=== PATIENT | female | born 1930 | race Caucasian/White ===

== ENCOUNTER → 2016-07-19 | Outpatient (CLI) | payer MEDICARE, OTHER | END | disposition home or self-care (01) | LOC: GMAB 15:52 | PROVIDERS: ATTEND Family Medicine | DX: N39.0 Urinary tract infection, site not specified (principal) ==

== ENCOUNTER 2018-07-22 06:36 | Inpatient (IN) | payer MEDICARE, OTHER ==
[2018-07-22] MEDS ORDERED: IPRATROPIUM/ALBUTEROL 3 ML VIAL NEB ONE ×3 (06:50→07:57)
[2018-07-22] MEDS ORDERED: cefTRIAXone SODIUM 1 GM in SODIUM CHL 0.9% 50ML MIN-BAG+ 50 ML IVPB ONE (07:08)
[2018-07-22] MEDS ORDERED: SODIUM CHL 0.9% 50ML MIN-BAG+ 50 ML IVPB ONE (07:19)
[2018-07-22] MEDS ORDERED: cefTRIAXone SODIUM 1 GM VIAL ONE (07:19)
[2018-07-22] MEDS ORDERED: AZITHROMYCIN IV 500 MG in SODIUM CHLORIDE 0.9% 250ML 250 ML IVPB ONE (07:57)
[2018-07-22] MEDS ORDERED: methylPREDNISolone SODIUM SUC 125 MG/2 ML VIAL IV ONE (07:57)
[2018-07-22] MEDS ORDERED: AZITHROMYCIN IV 500 MG VIAL IVPB ONE (08:10)
[2018-07-22] MEDS ORDERED: SODIUM CHLORIDE 0.9% 250ML 250 ML ONE (08:11)
--- NOTE | 2018-07-22 08:42 | RAD ---
EXAM DESCRIPTION: Chest,2 Views CLINICAL HISTORY: SOB COMPARISON: December 17, 2015 FINDINGS: Frontal and lateral views of the thorax. No acute consolidation, effusion or pneumothorax is present. Mild left ventricular hypertrophy is present. Vascular pedicle is normal. No cephalization. No increased interstitial lung markings. Degenerative dextro scoliosis of the thoracolumbar spine. IMPRESSION: Negative for acute cardiopulmonary disease. Electronically signed by: Daryl Frances MD 07/22/2018 8:39 AM [employer]
[2018-07-22] MEDS ORDERED: OSELTAMIVIR 75 MG CAP PO ONE (08:46)
--- NOTE | 2018-07-22 08:53 | ED.PDOC ---
History of Present Illness - General Chief Complaint: Respiratory Problem Stated Complaint: short of breath Time Seen by Provider: 07/22/18 07:07 Source: patient Exam Limitations: no limitations - History of Present Illness Initial Comments: the patient is a 88-year-old female presenting to the emergency room primarily due to shortness of breath progressive essentially overnight. The patient was found to be 79% on room air. No definite known history of any COPD and no oxygen dependence in the past. Symptoms started yesterday with a runny nose and a sore throat and a cough. She thinks that she has had a fever but she has had some dccv-lvd-cxhlhtl medications and is technically afebrile here but her temperature was 99.9. She does have wheezes that are audible even without a stethoscope. She does have some diffuse rhonchi. She has corrected nicely with 3 L of nasal cannula oxygen. She does have a history of aortic valvular disease and does see Dr. bronw. No definite history of CHF exacerbations. No history of any COPD again. The patient is pleasant and cooperative but obviously oxygen dependent and in some moderate respiratory distress upon arrival. Timing/Duration: 24 hours Severity: moderate Improving Factors: nothing Worsening Factors: nothing Associated Symptoms: cough, fever/chills, malaise, shortness of breath Allergies/Adverse Reactions: Allergies NO KNOWN ALLERGY Allergy (Verified 02/23/13 17:16) Home Medications: Ambulatory Orders Aspirin [Aspirin EC Lo-Dose] 81 mg PO AM 09/22/13 Atorvastatin Calcium [Lipitor] 10 mg PO AM 09/22/13 Lisinopril 20 mg PO BID 09/22/13 Metoprolol Succinate [Metoprolol Succinate ER] 100 mg PO AM 09/22/13 Review of Systems - Review of Systems Constitutional: States: chills, malaise EENTM: States: nose congestion, throat pain Respiratory: States: cough, short of breath, wheezing Cardiology: States: no symptoms reported Gastrointestinal/Abdominal: States: no symptoms reported Genitourinary: States: no symptoms reported Musculoskeletal: States: no symptoms reported Skin: States: no symptoms reported Neurological: States: no symptoms reported Endocrine: States: no symptoms reported All other Systems: No Change from Baseline Past Medical History (General) - Patient Medical History Hx Stroke: No Hx Cardiac Disorders: Yes Hx Congestive Heart Failure: No Hx Pacemaker: No Hx Hypertension: Yes Hx Diabetes: No Hx Gastroesophageal Reflux: Yes Hx MRSA: No - Vaccination History Hx Influenza Vaccination: No Hx Pneumococcal Vaccination: No - Social History Hx Tobacco Use: Yes - Quit 1988 Hx Alcohol Use: No Hx Substance Use: No Hx Physical Abuse: No Hx Emotional Abuse: No Family Medical History - Family History Father Family History: No Known Living Status: Physical Exam - Physical Exam General Appearance: Alert, Obvious distress, Ill Appearing Eye Exam: bilateral normal Ears, Nose, Throat: hearing grossly normal, nasal congestion, pharyngeal erythema - mild Neck: full range of motion, supple Respiratory: respiratory distress, accessory muscle use, rhonchi, wheezing Cardiovascular/Chest: normal peripheral pulses, no edema, tachycardia Peripheral Pulses: radial,right: 2+, radial,left: 2+, dorsalis pedis,right: 2+, dorsalis pedis,left: 2+ Gastrointestinal/Abdominal: non tender, soft Rectal Exam: deferred Back Exam: no CVA tenderness, no vertebral tenderness Extremity: non-tender, normal inspection, no pedal edema, normal capillary refill 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 She apparently had a fracture of the maxillary sinus as well. Comments: Vital Signs - 8 hr 07/22/18 07/22/18 07/22/18 06:50 06:56 07:03 Temperature 99.9 F H Pulse Rate Pulse Rate [ 89 85 Right] Respiratory 22 20 Rate Blood Pressure 194/95 161/91 [Left Arm] O2 Sat by Pulse 79 L 95 Oximetry 07/22/18 07/22/18 07:10 08:12 Temperature Pulse Rate 91 H 86 Pulse Rate [ Right] Respiratory 22 18 Rate Blood Pressure [Left Arm] O2 Sat by Pulse 91 L 93 L Oximetry Progress - Progress Progress: 07/22/18 08:58 the patient is a 88-year-old female presenting with moderate respiratory distress and significant hypoxia. She has corrected significantly with supplemental oxygen and a couple of breathing treatments. At this point time this appears to be more of a significant acute bronchitis than a focal pneumonia. She did test negative for influenza however this was done subsequent to DuoNeb treatments given by mask which may have interfered with the test. retesting may be prudent, given prevalence in the community. The patient is being covered with Rocephin and azithromycin and Tamiflu. She is of course receiving oxygen, DuoNeb's and has received a dose of IV Solu-Medrol as well. She is much more comfortable at this point. No longer in respiratory distress. She does have a history of aortic valve disease but no definitive history of congestive heart failure according to her. If the patient is failing to improve then consideration could be given towards a trial dose of a diuretic, however this point in time I do not see objective evidence of fluid overload. Blood pressures were initially elevated likely due to patient distress, they have sinc e returned more down towards normal. Last blood pressure was in the 140s over 70s. critical care time spent for respiratory distress is 25 minutes. Blood cultures have been performed. the EKG is abnormal but I have no previous EKGs to compare to. It may be worthwhile to obtain the most recent from Dr. Brown office comparison to make sure that we do not have any new bundle branch block issues. Initial set of cardiac enzymes are negative. The patient is chest pain-free. 07/22/18 09:02 - Results/Orders Results/Orders: chest x-ray shows no overt pneumonia and no overt fluid overload. No obvious mass and no pneumothorax. Laboratory Tests 07/22/18 07/22/18 07/22/18 07:13 07:13 07:13 WBC 9.4 RBC 4.33 Hgb 13.3 Hct 40.0 MCV 92.5 MCH 30.7 MCHC 33.2 RDW 13.2 Plt Count 219 MPV 7.8 Absolute Neuts (auto) 7.80 H Absolute Lymphs (auto) 0.80 L Absolute Monos (auto) 0.50 Absolute Eos (auto) 0.20 Absolute Basos (auto) 0.10 Neutrophils % 82.6 H Lymphocytes % 8.8 L Monocytes % 5.3 Eosinophils % 2.6 Basophils % 0.7 Sodium 141 Potassium 3.5 L Chloride 99 L Carbon Dioxide 29 Anion Gap 16.5 BUN 12 Creatinine 0.77 BUN/Creatinine Ratio 15.6 Random Glucose 134 H Serum Osmolality 283.0 Lactic Acid 1.5 Calcium 9.0 Total Bilirubin 0.7 AST 26 ALT 15 Alkaline Phosphatase 80 Creatine Kinase 72 CK-MB (CK-2) 2.0 CK-MB (CK-2) % Not Reportable Troponin I < 0.02 B-Natriuretic Peptide 209.0 H* Serum Total Protein 7.3 Albumin 3.8 Globulin 3.5 Albumin/Globulin Ratio 1.1 EKG shows normal sinus rhythm at 85 bpm. She does have a right bundle branch block and there is question of a left anterior fascicular block. These changes make ST segment and T-wave abnormalities with apical to interpret. Fairly maría l axis. QT interval is prolonged. Utility of EKG is limited due to interventricular conduction abnormalities.I have no previous EKGs to compare to. Departure - Departure Clinical Impression: Respiratory distress, Acute bronchitis and bronchiolitis Disposition: Admit Patient Condition: Serious Referrals: ALONDRA MORGAN MD [Primary Care Provider] - 1-2 Weeks Home Medications: Ambulatory Orders Aspirin [Aspirin EC Lo-Dose] 81 mg PO AM 09/22/13 Atorvastatin Calcium [Lipitor] 10 mg PO AM 09/22/13 Lisinopril 20 mg PO BID 09/22/13 Metoprolol Succinate [Metoprolol Succinate ER] 100 mg PO AM 09/22/13 Decision To Admit - Decistion To Admit Decision to Admit Reason: Medical Nature Decision to Admit Date: 07/22/18 Decision to Admit Time: 09:02
--- NOTE | 2018-07-22 09:15 | HP ---
SUPERVISING PHYSICIAN: Binu Espana M.D. CHIEF COMPLAINT: Increasing shortness of breath. HISTORY OF PRESENT ILLNESS: Ms. Garza is an 88 year-old female patient that initially presented to the Emergency Room today due to increasing shortness of breath since last night. This morning, the patient was found to be 79% on room air. She noted that she started initially with a runny nose, sore throat and a cough, but not sure if she has had a fever. She has had some muvv-weh-izhzyqa medications that includes Tylenol and on presentation to the Emergency Room temperature was 99.9. In the E. R., she was found to have audible wheezes even without a stethoscope with some diffuse rhonchi. She was placed on nasal cannula improving O2 saturations into the 90s. She has a significant history of aortic valvular disease and is followed by Dr. Brown, but no history of congestive heart failure. Initial vitals in the E. R. showed that again she was satting 79% on room air and after a breathing treatment was up to 91% on 3 liters nasal cannula, and desatted rapidly after removal of supplemental oxygenation. Radiographic studies were negative for any acute cardiopulmonary disease per radiology interpretation. Laboratory studies showed she had normal white count at 9,400 but did have a left shift. Chemistry showed a mildly low potassium at 3.5. Troponin was less than 0.02. BNP was elevated at 209. Lactic acid is 1.5. Blood cultures were completed. Influenza by PCR was showing to be negative for both A and B, however the test was completed just shortly after a nebulizer breathing treatment with the patient being advanced age and requiring continuous supplemental oxygen with concerns for possible upper respiratory infection secondary to Influenza-like illness. Dr. Espana, E. R. physician, requested the patient be admitted for further evaluation and treatment with concerns for developing complications secondary to viral pneumonitis to include possible community-acquired pneumonia. PAST MEDICAL HISTORY: 1. Seasonal allergies. 2. Hypertension. 3. Hyperlipidemia. 4. Diverticulosis. PAST SURGICAL HISTORY: 1. Bladder suspension. 2. Umbilical hernia repair. HOME MEDICATIONS: 1. Lisinopril 40 mg daily. 2. Lipitor 10 mg daily. 3. Aspirin 81 mg daily. 4. Metoprolol succinate extended release 100 mg daily. ALLERGIES: NO KNOWN DRUG ALLERGIES. FAMILY HISTORY: Positive for myasthenia gravis in the mother and maternal grandmother and maternal uncle. Mother also had colon cancer. 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 She is and has 3 children. She does have a history of smoking cigarettes but quit in 1979. She notes that she drinks alcohol on a very infrequent social basis. REVIEW OF SYSTEMS: GENERAL: On admission to the Medical/Surgical floor the patient appears to be in no acute distress. She does look ill in appearance. She is alert, well hydrated, well nourished. HEENT: Tympanic membranes are clear bilaterally. Oropharynx was pink and moist. There was some notable nasal congestion. No drainage. NECK: Supple, non-tender. Full range of motion. No jugular venous distention. CHEST: Lung sounds show diffuse rhonchi and wheezing throughout with decreased breath sounds at bilateral bases. HEART: Regular rate and rhythm with no appreciable murmurs, gallops, or rubs. ABDOMEN: Soft, non-tender. Positive bowel sounds. EXTREMITIES: No clubbing, cyanosis or edema. NEUROLOGIC: She is alert and oriented times three. Cranial nerves II-XII are grossly intact. SKIN: She has [address] overlying the right cheek from a previous fall within the last 10 days but no reported fracture involved in the area in question. Wound edges appear to be healing without any complications. PHYSICAL EXAMINATION: VITAL SIGNS: Temperature 99.8, pulse 100, blood pressure 155/81, respirations 16, again satting 79% on room air, with breathing treatments improving to 91 to 93% on nasal cannula at 3 liters. Admission weight 64.1 kg. Physical findings as noted above. GENERAL: HEENT: NECK: CHEST: CARDIOVASCULAR: ABDOMEN: EXTREMITIES: NEUROLOGIC: RECTAL: LABORATORY: CBC shows white count 9,400 with a left shift. Hemoglobin 13.3, hematocrit 40.0, platelet count 219,000. Chemistry shows mildly low potassium at 3.5, BUN 12, creatinine 0.77, lactic acid 1.5. Liver functions are all within normal limits. Troponin less than 0.02. BNP is 209. Urinalysis was pending. MICROBIOLOGY: Blood cultures are pending. Sputum culture is pending. Influenza A and B by PCR was negative. RADIOLOGY: Two view chest interpretation by radiology was no acute cardiopulmonary disease. ASSESSMENT: 1. Acute bronchitis with bronchiolitis with initially respiratory distress requiring supplemental oxygen and showing to be hypoxic on room air. 2. Influenza-like illness with concerns for viral pneumonitis resulting in acute bronchiolitis noted in #1. 3. Persistent hypoxemia secondary to #1 and #2 requiring aggressive bronchial toiletry and supplemental oxygenation. 4. History of hypertension. 5. History of hyperlipidemia. 6. History of diverticulosis. PLAN: Ms. Garza is going to be admitted with concerns for worsening bronchiolitis secondary to viral infection and concerns for developing community acquired pneumonia. She was started on antivirals with Tamiflu and will be given antibiotics including azithromycin and Rocephin. Will attempt to collect a sputum culture to further target antibiotic therapy. Will follow a chest x- ray and blood cultures. Will anticipate her length of stay to be 2 to 3 days. She will be on DVT prophylaxis as per protocol. Will resume her home medications once those have been updated and verified. She will be on aggressive pulmonary hygiene with q.i.d. DuoNeb treatments and supplemental oxygen as needed. Until she can transition to outpatient management will continue to monitor and treat as needed. #[id number] [facility]
[2018-07-22] MEDS ORDERED: ONDANSETRON INJ 4 MG/2 ML VIAL IV PRN (11:12)
[2018-07-22] MEDS ORDERED: IBUPROFEN 400 MG TAB PO PRN (11:12)
[2018-07-22] MEDS ORDERED: ALBUTEROL SULFATE 2.5 MG/3 ML VIAL NEB PRN (11:12)
[2018-07-22] MEDS ORDERED: ACETAMINOPHEN 325 MG TAB PO PRN (11:12)
[2018-07-22] MEDS ORDERED: METOPROLOL SUCCINATE XL 50 MG TAB ONE (11:29)
[2018-07-22] MEDS ORDERED: LISINOPRIL 10 MG TAB ONE (11:29)
[2018-07-22] MEDS ORDERED: NON-FORMULARY MEDICATION 1 EA MIS (Lisinopril [Lisinopril] 40 MG) PO SCH (11:30)
[2018-07-22] MEDS: IV SET AND CAP CHANGE INJ INJ SCH (11:43)
[2018-07-22] MEDS: IPRATROPIUM/ALBUTEROL 3 ML VIAL INH SCH ×3 (11:45→20:18)
[2018-07-22] MEDS: METOPROLOL SUCCINATE XL 100 MG TAB PO SCH (11:51)
[2018-07-22] MEDS ORDERED: PANTOPRAZOLE SODIUM IV 40 MG VIAL ONE (20:24)
[2018-07-22] MEDS: OSELTAMIVIR 75 MG CAP PO SCH (21:30)
[2018-07-22] MEDS: BENZOCAINE-MENTH LOZ (CEPACOL) 1 EA LOZ MT PRN (21:30)
[2018-07-23] MEDS: PANTOPRAZOLE SODIUM IV 40 MG VIAL IV SCH (06:05)
[2018-07-23] MEDS ORDERED: SODIUM CHLORIDE 0.9% 250ML 250 ML ONE (07:03)
[2018-07-23] MEDS ORDERED: AZITHROMYCIN IV 500 MG VIAL IVPB ONE (07:03)
--- NOTE | 2018-07-23 07:33 | RAD ---
EXAM DESCRIPTION: Chest,2 Views CLINICAL HISTORY: Pneumonia COMPARISON: July 22, 2018. FINDINGS: Frontal and lateral views of the thorax. No consolidation, effusion or pneumothorax is demonstrated. Normal senescent changes. IMPRESSION: Stable chest. Electronically signed by: Daryl Frances MD 07/23/2018 7:30 AM [facility]
[2018-07-23] MEDS: SIMVASTATIN 20 MG TAB PO SCH (08:35)
[2018-07-23] MEDS: OSELTAMIVIR 75 MG CAP PO SCH (08:35)
[2018-07-23] MEDS: METOPROLOL SUCCINATE XL 100 MG TAB PO SCH (08:35)
[2018-07-23] MEDS: LISINOPRIL 10 MG TAB PO SCH (08:35)
[2018-07-23] MEDS: ASPIRIN (ENTERIC COATED) 81 MG TAB PO SCH (08:36)
[2018-07-23] MEDS: AZITHROMYCIN IV 500 MG in SODIUM CHLORIDE 0.9% 250ML 250 ML IVPB SCH (08:36)
[2018-07-23] MEDS: IPRATROPIUM/ALBUTEROL 3 ML VIAL INH SCH (08:49)
[2018-07-23] MEDS: NON-FORMULARY MEDICATION 1 EA MIS (Mirabegron [Myrbetriq] 25 MG) PO SCH (10:08)
[2018-07-23] MEDS ORDERED: SODIUM CHL 0.9% 50ML MIN-BAG+ 50 ML IVPB ONE (10:08)
[2018-07-23] MEDS ORDERED: cefTRIAXone SODIUM 1 GM VIAL ONE (10:09)
[2018-07-23] MEDS: cefTRIAXone SODIUM 1 GM in SODIUM CHL 0.9% 50ML MIN-BAG+ 50 ML IVPB SCH (10:37)
[2018-07-23] MEDS: BENZOCAINE-MENTH LOZ (CEPACOL) 1 EA LOZ MT PRN ×2 (11:27→15:05)
[2018-07-23] MEDS: guaiFENesin ER TAB 600 MG TAB PO SCH ×2 (12:13→20:39)
[2018-07-23] MEDS: LEVALBUTEROL NEBS 1.25 MG/3 ML VIAL NEB SCH ×3 (13:26→20:13)
[2018-07-23] MEDS: BIFIDOBACTERIUM INFANTIS 4 MG CAP PO SCH (15:05)
[2018-07-23] MEDS: SODIUM CHLORIDE 0.9% (FLUSH) 10 ML SYG IV PRN (20:39)
[2018-07-23] MEDS: ENOXAPARIN SODIUM 30 MG/0.3 ML SYG SUBCU SCH (20:39)
[2018-07-23] MEDS: OSELTAMIVIR PHOSPHATE 6 MG/ML BOTTLE PO SCH (20:40)
[2018-07-24] MEDS: PANTOPRAZOLE SODIUM IV 40 MG VIAL IV SCH (06:20)
[2018-07-24] MEDS ORDERED: SODIUM CHLORIDE 0.9% 250ML 250 ML ONE (07:51)
[2018-07-24] MEDS ORDERED: AZITHROMYCIN IV 500 MG VIAL IVPB ONE (07:52)
--- NOTE | 2018-07-24 07:53 | RAD ---
EXAM DESCRIPTION: Chest,2 Views CLINICAL HISTORY: copd exacerbation COMPARISON: July 23, 2018 FINDINGS: The cardiac silhouette is at the upper limits of normal size, stable. Mediastinal contours are otherwise unremarkable. There is no airspace consolidation or pleural effusion. Mild subsegmental atelectasis or scarring is noted in both lung bases, stable. There is no pneumothorax or acute fracture. IMPRESSION: No new abnormality or significant change from yesterday's exam. Electronically signed by: Elvis Lazo MD 07/24/2018 7:50 AM [facility]
--- NOTE | 2018-07-24 08:55 | PN ---
SUPERVISING PHYSICIAN: Binu Espana MD DATE: 07/23/18 SUBJECTIVE: The patient is now having a wet cough and able to produce what she describes as purulent, green looking sputum. She does note she can feel a little more short of breath when she lays down, especially on her right side. She has been afebrile since admission. OBJECTIVE: VITAL SIGNS: Temperature 97.7. Pulse 65. Blood pressure 150/77. Respirations 18. Saturation 94% on room air at rest. Weight 64.0 kg. CHEST: Notable rhonchi heard throughout, more prominent on the right lateral aspect compared to the left with no wheezing. HEART: Regular rate and rhythm. ABDOMEN: Soft, nontender. Positive bowel sounds. EXTREMITIES: No cyanosis, clubbing or edema. NEUROLOGIC: Alert and oriented times three. LABORATORY: White count 8,400, hemoglobin 11.1, hematocrit 33.3, platelet count 189,000. Differential shows a left shift. Chemistries show potassium 3.3, BUN 15, creatinine 0.71, calcium 8.4. MICROBIOLOGY: Blood cultures remain negative. Influenza by PCR for A and B was negative. RADIOLOGY: Repeat chest x-ray this morning per radiologic interpretation shows stable chest. ASSESSMENT: 1. Acute bronchitis/bronchiolitis being hypoxic on room air, requiring supplemental oxygen. 2. Influenza-like illness with probable viral pneumonitis, complicating #1 with concerns now for developing right lower lobe community acquired pneumonia. 3. Persistent hypoxemia secondary to #1 and #2, with continued requirements for aggressive bronchial toiletry and supplemental oxygenation. 4. History of hypertension. 5. History of hyperlipidemia. 6. History of diverticulosis. PLAN: We will continue to go with aggressive pulmonary hygiene today. We will start her on chest percussive therapy along with guaifenesin. She was able to produce sputum for culture. We will await that result to further target antibiotic therapy with anticipation of probably discharging or Sunday. She will need to be ambulated to help ensure she does not require oxygen on discharge. She does remain on DVT prophylaxis. I have resumed her home medications. Until she can transition to outpatient management, we will continue to monitor and treat as needed. #[id number] [facility]
[2018-07-24] MEDS: LEVALBUTEROL NEBS 1.25 MG/3 ML VIAL NEB SCH ×4 (09:19→20:20)
[2018-07-24] MEDS: SODIUM CHLORIDE 0.9% (FLUSH) 10 ML SYG IV PRN ×3 (09:30→20:30)
[2018-07-24] MEDS: AZITHROMYCIN IV 500 MG in SODIUM CHLORIDE 0.9% 250ML 250 ML IVPB SCH (09:30)
[2018-07-24] MEDS: SIMVASTATIN 20 MG TAB PO SCH (09:31)
[2018-07-24] MEDS: ASPIRIN (ENTERIC COATED) 81 MG TAB PO SCH (09:31)
[2018-07-24] MEDS: BIFIDOBACTERIUM INFANTIS 4 MG CAP PO SCH (09:31)
[2018-07-24] MEDS: METOPROLOL SUCCINATE XL 100 MG TAB PO SCH (09:31)
[2018-07-24] MEDS: LISINOPRIL 10 MG TAB PO SCH (09:31)
[2018-07-24] MEDS: guaiFENesin ER TAB 600 MG TAB PO SCH ×2 (09:31→20:30)
[2018-07-24] MEDS: OSELTAMIVIR PHOSPHATE 6 MG/ML BOTTLE PO SCH ×2 (09:32→20:30)
[2018-07-24] MEDS: NON-FORMULARY MEDICATION 1 EA MIS (Mirabegron [Myrbetriq] 25 MG) PO SCH (09:35)
[2018-07-24] MEDS ORDERED: SODIUM CHL 0.9% 50ML MIN-BAG+ 50 ML IVPB ONE (11:19)
[2018-07-24] MEDS ORDERED: cefTRIAXone SODIUM 1 GM VIAL ONE (11:19)
[2018-07-24] MEDS: cefTRIAXone SODIUM 1 GM in SODIUM CHL 0.9% 50ML MIN-BAG+ 50 ML IVPB SCH (11:49)
[2018-07-24] MEDS ORDERED: predniSONE 20 MG TAB PO ONE (13:11)
[2018-07-24] MEDS: BUDESONIDE NEBS 0.5 MG/2 ML VIAL NEB SCH ×2 (13:49→20:20)
--- NOTE | 2018-07-24 17:44 | PN ---
DATE: 07/24/18 SUPERVISING PHYSICIAN: Binu Espana M.D. SUBJECTIVE: The patient is still requiring some O2 when ambulating. She has not yet produced a great amount of sputum but feels like it is improving with the therapy. She has remained afebrile. OBJECTIVE: VITAL SIGNS: Temperature 98.3, pulse 87, blood pressure 146/81, respirations 18, satting 92% on room air at rest. Weight is 65.6 kg. GENERAL: The patient is resting comfortably. Appears to be in no acute distress. She is alert. CHEST: Lung sounds show notable rhonchi heard bilaterally towards both bases with very faint inspiratory and expiratory wheezing. HEART: Regular rate and rhythm. ABDOMEN: Soft, non-tender. Positive bowel sounds. EXTREMITIES: No edema. NEUROLOGIC: She is alert and oriented times three. LABORATORY: Today's chemistries show a persistent low potassium at 3.2, otherwise all other indices were within normal limits. BUN 12, creatinine 0.65, calcium 8.5. MICROBIOLOGY: Blood cultures remain negative at 48 hours. ASSESSMENT: 1. Acute bronchitis/bronchiolitis being hypoxic on room air, requiring supplemental oxygen. 2. Influenza-like illness with probable viral pneumonitis, complicating #1 with concerns now for developing right lower lobe community acquired pneumonia. 3. Persistent hypoxemia secondary to #1 and #2, with continued requirements for aggressive bronchial toiletry and supplemental oxygenation. 4. History of hypertension. 5. History of hyperlipidemia. 6. History of diverticulosis. PLAN: Given that she is having some wheezing today, we are going to go ahead and add some oral prednisone and Pulmicort breathing treatments. Will continue to utilize Guaifenesin and aggressive pulmonary hygiene to help clear the patient's lungs as possible. Will await culture results to help target antibiotic therapy. Once able to transition to outpatient management she will need continued followup and continue antibiotic therapy. I have again encouraged her to ambulate. She has been taken out of droplet isolation as there are no signs or symptoms of any kind of Influenza-type illness. Until she transitions to outpatient management will continue to monitor and treat as needed. #[id number] [facility]
[2018-07-24] MEDS: ENOXAPARIN SODIUM 30 MG/0.3 ML SYG SUBCU SCH (20:30)
[2018-07-25] MEDS: PANTOPRAZOLE SODIUM IV 40 MG VIAL IV SCH (06:06)
[2018-07-25] MEDS ORDERED: SODIUM CHLORIDE 0.9% 250ML 250 ML ONE (07:32)
[2018-07-25] MEDS ORDERED: AZITHROMYCIN IV 500 MG VIAL IVPB ONE (07:33)
[2018-07-25] MEDS: BUDESONIDE NEBS 0.5 MG/2 ML VIAL NEB SCH (08:29)
[2018-07-25] MEDS: LEVALBUTEROL NEBS 1.25 MG/3 ML VIAL NEB SCH ×2 (08:29→11:30)
[2018-07-25] MEDS: BIFIDOBACTERIUM INFANTIS 4 MG CAP PO SCH (08:43)
[2018-07-25] MEDS: METOPROLOL SUCCINATE XL 100 MG TAB PO SCH (08:43)
[2018-07-25] MEDS: guaiFENesin ER TAB 600 MG TAB PO SCH (08:43)
[2018-07-25] MEDS: ASPIRIN (ENTERIC COATED) 81 MG TAB PO SCH (08:43)
[2018-07-25] MEDS: LISINOPRIL 10 MG TAB PO SCH (08:43)
[2018-07-25] MEDS: SIMVASTATIN 20 MG TAB PO SCH (08:43)
[2018-07-25] MEDS: SODIUM CHLORIDE 0.9% (FLUSH) 10 ML SYG IV PRN (08:44)
[2018-07-25] MEDS: OSELTAMIVIR PHOSPHATE 6 MG/ML BOTTLE PO SCH (08:44)
[2018-07-25] MEDS: AZITHROMYCIN IV 500 MG in SODIUM CHLORIDE 0.9% 250ML 250 ML IVPB SCH (08:45)
[2018-07-25] MEDS: NON-FORMULARY MEDICATION 1 EA MIS (Mirabegron [Myrbetriq] 25 MG) PO SCH (08:46)
[2018-07-25 09:55] VITALS: BP 151/75; TEMP 97.7; O2SAT 96
[2018-07-25] MEDS ORDERED: SODIUM CHL 0.9% 50ML MIN-BAG+ 50 ML IVPB ONE (11:31)
[2018-07-25] MEDS ORDERED: cefTRIAXone SODIUM 1 GM VIAL ONE (11:32)
[2018-07-25] MEDS: cefTRIAXone SODIUM 1 GM in SODIUM CHL 0.9% 50ML MIN-BAG+ 50 ML IVPB SCH (11:36)
[2018-07-25] MEDS: IV SET AND CAP CHANGE INJ INJ SCH (11:53)
--- NOTE | 2018-08-05 19:04 | DS ---
SUPERVISING PHYSICIAN: Binu Espana M.D. ADMISSION DIAGNOSIS: 1. Acute bronchitis with bronchiolitis with initially respiratory distress requiring supplemental oxygen and showing to be hypoxic on room air. 2. Influenza-like illness with concerns for viral pneumonitis resulting in acute bronchiolitis noted in #1. 3. Persistent hypoxemia secondary to #1 and #2 requiring aggressive bronchial toiletry and supplemental oxygenation. 4. History of hypertension. 5. History of hyperlipidemia. 6. History of diverticulosis. DISCHARGE DIAGNOSIS: 1. Acute bronchitis/bronchiolitis being hypoxic on room air, requiring supplemental oxygen. 2. Influenza-like illness with probable viral pneumonitis, complicating #1 with concerns now for developing right lower lobe community acquired pneumonia. 3. Persistent hypoxemia secondary to #1 and #2, with continued requirements for aggressive bronchial toiletry and supplemental oxygenation. 4. History of hypertension. 5. History of hyperlipidemia. 6. History of diverticulosis. REASON FOR HOSPITALIZATION: Ms. Garza is an 88 year-old female patient that initially presented to the Emergency Room today due to increasing shortness of breath since last night. This morning, the patient was found to be 79% on room air. She noted that she started initially with a runny nose, sore throat and a cough, but not sure if she has had a fever. She has had some [id number] medications that includes Tylenol and on presentation to the Emergency Room temperature was 99.9. In the E. R., she was found to have audible wheezes even without a stethoscope with some diffuse rhonchi. She was placed on nasal cannula improving O2 saturations into the 90s. She has a significant history of aortic valvular disease and is followed by Dr. Brown, but no history of congestive heart failure. Initial vitals in the E. R. showed that again she was satting 79% on room air and after a breathing treatment was up to 91% on 3 liters nasal cannula, and desatted rapidly after removal of supplemental oxygenation. Radiographic studies were negative for any acute cardiopulmonary disease per radiology interpretation. Laboratory studies showed she had normal white count at 9,400 but did have a left shift. Chemistry showed a mildly low potassium at 3.5. Troponin was less than 0.02. BNP was elevated at 209. Lactic acid is 1.5. Blood cultures were completed. Influenza by PCR was showing to be negative for both A and B, however the test was completed just shortly after a nebulizer breathing treatment with the patient being advanced age and requiring continuous supplemental oxygen with concerns for possible upper respiratory infection secondary to Influenza-like illness. Dr. Espana, E. R. physician, requested the patient be admitted for further evaluation and treatment with concerns for developing complications secondary to viral pneumonitis to include possible community-acquired pneumonia. LABORATORY STUDIES: White count on admission was 9.4, at discharge was 8,400. Hemoglobin 11.1, hematocrit 33.3 respectively with platelet count 189,000. Differential showed a persistent left shift. Chemistries showed potassium 3.5 at admission and on discharge was 3.2. All other electrolytes were within normal limits. Troponin was less than 0.02. Liver functions all were within normal limits. BNP was elevated at 209. Lactic acid was 1.5. Urinalysis just showed 15 ketones, otherwise within normal limits. MICROBIOLOGY: Blood cultures remained negative after 5 days. Influenza A and B by PCR showed to be negative for A and B. RADIOLOGY: Chest x-ray initially in the E. R. per radiology interpretation for 2 view chest showed negative for acute cardiopulmonary disease. She also had multiple chest x-rays, the last being on 07/24/18 and per radiology interpretation showed the cardiac silhouette at the upper limits of normal with no airspace consolidations or pleural effusions. No pneumothoraxes or acute fractures. Please see that report for full details. EKG at time of admission showed normal sinus rhythm with no acute ST changes. HOSPITAL COURSE: Ms. Garza was admitted on 07/22/18 for treatment of acute bronchitis, bronchiolitis with persistent hypoxemia. She was started on oxygen and aggressive pulmonary hygiene. Medications included Rocephin. She was started on IV steroids and tapered to p.o. dose along with the addition of azithromycin. She clinically showed good improvement and response to treatment. She was felt stable enough to continue with outpatient management. PLAN: Ms. Garza was discharged on 07/25/18 with instructions to followup with Dr. Cody in 7 days or sooner if needed. She was to resume her home medications as instructed and given warnings to return to the hospital should she have any worsening of her symptoms. Diet at discharge was regular diet as tolerated. Activity is to increase as tolerated. New prescriptions at discharged included: 1. Promethazine with codeine every 6 hours as needed for cough. 2. Align 4 mg daily. 3. Cefdinir 300 mg twice daily, #14, no refills. 4. Guaifenesin 600 mg twice daily. 5. Xopenex 1.25 mg 4 times a day, #25 with refills. 6. Medrol Dosepak 4 mg as directed. 7. Tamiflu 60 mg twice daily for completion of 5 days. All other medications prior to hospitalization were continued as noted: 1. Myrbetriq 25 mg daily. 2. Lisinopril 40 mg daily. 3. Aspirin 81 mg daily. DISPOSITION: The patient is discharged home. Condition on discharge was stable and improving. [facility][id number] [facility]
== END 2018-07-25 13:20 | disposition home or self-care (01) | DRG 195 ==
LOC: ER 06:36 → MS 09:14
PROVIDERS: ADMIT Nurse Practitioner Family; ATTEND Nurse Practitioner Family
DX: J11.08 Influenza due to unidentified influenza virus with specified pneumonia (principal); I35.9 Nonrheumatic aortic valve disorder, unspecified; I10 Essential (primary) hypertension; K21.9 Gastro-esophageal reflux disease without esophagitis; E78.5 Hyperlipidemia, unspecified; Z79.82 Long term (current) use of aspirin; Z87.891 Personal history of nicotine dependence

== ENCOUNTER → 2019-02-07 | Outpatient (CLI) | payer MEDICARE, OTHER ==
--- NOTE | 2019-02-09 15:10 | US ---
EXAM DESCRIPTION: Soft Tissue,Extremity: ULTRASOUND. CLINICAL HISTORY: 88 years Female LOCALIZED SWELLING MASS AND LUMP RIGHT UPPER LIMB COMPARISON: None Available. TECHNIQUE: Transcutaneous scanning: Ruby-scale and Doppler modes. FINDINGS: Marked ecchymosis on the anterior and anteromedial inferior right upper arm and right elbow. Soft tissue swelling mid anterior right upper arm. Long head biceps tendon and short head biceps are intact. Diffuse edema and disruption noted in the distal right biceps brachia. Patient could not tolerate transducer pressure over the distal muscle in the area of ecchymosis. Hemorrhage and echogenic shadowing noted. IMPRESSION: Probable partial versus complete tear of the distal biceps brachia tendon, though the distal insertion was not visualized due to patient tenderness. Also disruption of the distal muscle fibers with hemorrhage and soft tissue edema. Proximal tendons are intact. Electronically signed by: Yong Forbes MD 02/09/2019 3:09 PM CDT
== END ==
LOC: US 14:34
PROVIDERS: ATTEND Family Medicine
DX: R22.31 Localized swelling, mass and lump, right upper limb (principal); M67.813 Other specified disorders of tendon, right shoulder

== ENCOUNTER → 2019-02-17 | Outpatient (CLI) | payer MEDICARE, OTHER ==
--- NOTE | 2019-02-19 08:35 | MRI ---
Study: MRI of the right upper arm. Indication: LOCALIZED SWELLING,MASS LUMP,RT UPPER LIMB Technique: Multiplanar, multi sequence MRI of the right upper arm was obtained without intravenous contrast. Comparison: Sonogram February 07, 2018 Findings: Acute appearing full-thickness tear of the proximal long head biceps tendon from the bicipital labral anchor noted. The tendon is retracted and balled upon itself. It is located at the mid humeral shaft level, approximately 14 cm inferior to the superior margin of the humeral head. Extensive surrounding edema/inflammation at this site. Associated intramuscular edema present as well. The distal biceps tendon insertion is not included within the [id number], however the distal tendon does appear appropriately positioned at the level of the elbow joint line. Examination not optimized to evaluate the right shoulder or elbow for internal derangement. However, full-thickness, fullwidth supraspinatus tendon tearing noted with high-grade articular tearing anterior infraspinatus tendon. Severe AC joint osteoarthritis. Moderate glenohumeral joint effusion. No acute fracture of the right humerus identified. Impression: Acute-appearing full-thickness tear of the proximal long head biceps tendon from the bicipital labral anchor with significant distal retraction of the tendon which lies at the level of the mid humeral shaft. Partial visualization of full-thickness, fullwidth supraspinatus tendon tear with high-grade articular tearing infraspinatus tendon. Dedicated MRI of the right shoulder could better evaluate. Additional findings as above. Electronically signed by: Oscar Whittington MD 02/19/2019 8:33 AM CDT
== END ==
LOC: MRI 11:00
PROVIDERS: ATTEND Family Medicine
DX: S46.111A Strain of muscle, fascia and tendon of long head of biceps, right arm, initial encounter (principal); M75.101 Unspecified rotator cuff tear or rupture of right shoulder, not specified as traumatic

== ENCOUNTER → 2019-02-25 | Outpatient (CLI) | payer MEDICARE, OTHER ==
--- NOTE | 2019-02-26 07:56 | MRI ---
Study: MRI of the Right Shoulder. Indication: ROTATOR CUFF TEAR Technique: Multiplanar, multi sequence MRI of the right shoulder was obtained without intravenous contrast. Comparison: None. Findings: Severe hypertrophic AC joint osteoarthritis. Type II acromion. At the anterior superior shoulder is a subcutaneous encapsulated 5.5 cm lipoma. Small to moderate volume subacromial/subdeltoid bursal fluid. Superior migration humeral head. Full-thickness, fullwidth supraspinatus tendon tear with high-grade articular tearing anterior two thirds infraspinatus tendon insertion. In its entirety the tearing measures 35 mm AP by up to 35 mm transverse. Torn tendon fibers retracted to the level of the AC joint line. High grade articular, effectively full-thickness tearing superior two thirds subscapularis tendon insertion. Mild atrophy and grade 2 fatty infiltration rotator cuff musculature. Long head biceps tendon torn and distally retracted. Circumferential labral truncation and degeneration. Mild glenohumeral joint osteoarthritis with small joint effusion. No acute fracture. Impression: Full-thickness, fullwidth supraspinatus tendon tear with high-grade articular tearing anterior two thirds infraspinatus tendon insertion. High-grade articular, effectively full-thickness tearing superior two thirds subscapularis tendon insertion. Mild atrophy and grade 2 fatty infiltration rotator cuff musculature. Long head biceps tendon torn and distally retracted. Circumferential labral truncation/degeneration. Mild glenohumeral joint osteoarthritis with small joint effusion. Severe hypertrophic AC joint osteoarthritis. Electronically signed by: Oscar Whittington MD 02/26/2019 7:54 AM CDT
== END ==
LOC: MRI 09:00
PROVIDERS: ATTEND Orthopaedic Surgery
DX: M75.111 Incomplete rotator cuff tear or rupture of right shoulder, not specified as traumatic (principal); S46.111D Strain of muscle, fascia and tendon of long head of biceps, right arm, subsequent encounter; M19.011 Primary osteoarthritis, right shoulder; M62.511 Muscle wasting and atrophy, not elsewhere classified, right shoulder

== ENCOUNTER → 2019-03-18 | Outpatient (CLI) | payer MEDICARE, OTHER | LOC: GMAE 10:45 | PROVIDERS: ATTEND Family Medicine | DX: I10 Essential (primary) hypertension (principal); E78.2 Mixed hyperlipidemia ==

== ENCOUNTER → 2019-06-03 | Outpatient (CLI) | payer MEDICARE, OTHER | LOC: LAB.O 10:29 | PROVIDERS: ATTEND Orthopaedic Surgery | DX: Z01.818 Encounter for other preprocedural examination (principal) ==

== ENCOUNTER → 2019-06-17 | Outpatient (CLI) | payer MEDICARE, OTHER ==
--- NOTE | 2019-06-18 13:19 | MRI ---
Study: MRI of the Left Shoulder. Indication: UNSPECIFIED ROTATOR CUFF TEAR OR RUPTURE OF LEFT SHOULDER Technique: Multiplanar, multi sequence MRI of the left shoulder was obtained without intravenous contrast. Comparison: None. Findings: Moderate to severe hypertrophic AC joint osteoarthritis. Type II acromion. Moderate volume subacromial/subdeltoid bursal fluid communicating with a moderate size joint effusion. Full-thickness, fullwidth supraspinatus and infraspinatus tendon tearing with retraction of torn tendon fibers to the medial third of the humeral head. Full-thickness tearing superior two thirds subscapularis tendon insertion. Moderate atrophy and grade 2/3 fatty infiltration rotator cuff musculature. Mild intramuscular edema present as well. Long head biceps demonstrates high-grade tendinosis as well as medial dislocation. High-grade intracapsular tendon tearing suspected. Circumferential labral tearing and truncation. Mild to moderate glenohumeral joint osteoarthritis. No acute fracture. Thickening and edema inferior glenohumeral ligament which can be seen with adhesive capsulitis. Impression: Retracted full-thickness, fullwidth supraspinatus and infraspinatus tendon tearing with full-thickness tearing superior two thirds subscapularis tendon. Moderate atrophy and grade 2/3 fatty infiltration rotator cuff musculature. High-grade long head biceps tendinosis with medial dislocation and partial-thickness tearing. Circumferential labral tearing and truncation. Mild to moderate glenohumeral joint osteoarthritis with moderate-sized joint effusion. Adhesive capsulitis. Moderate to severe hypertrophic AC joint osteoarthritis. Electronically signed by: Oscar Whittington MD 06/18/2019 1:17 PM [facility]
== END ==
LOC: MRI 13:05
PROVIDERS: ATTEND Family Medicine
DX: M75.102 Unspecified rotator cuff tear or rupture of left shoulder, not specified as traumatic (principal); S46.112A Strain of muscle, fascia and tendon of long head of biceps, left arm, initial encounter; S43.432A Superior glenoid labrum lesion of left shoulder, initial encounter; M75.22 Bicipital tendinitis, left shoulder; M75.02 Adhesive capsulitis of left shoulder; M19.012 Primary osteoarthritis, left shoulder; M62.512 Muscle wasting and atrophy, not elsewhere classified, left shoulder; M25.412 Effusion, left shoulder

== ENCOUNTER 2019-06-24 05:25 | Day surgery (SDC) | payer MEDICARE, OTHER ==
[2019-06-24] MEDS ORDERED: ceFAZolin SODIUM 1 GM VIAL ONE ×2 (07:03→07:22)
[2019-06-24] MEDS ORDERED: LACTATED RINGERS 1,000 ML ONE (07:03)
[2019-06-24] MEDS ORDERED: SODIUM CHL 0.9% 100ML MINI-BAG 100 ML IVPB ONE (07:04)
[2019-06-24] MEDS ORDERED: methylPREDNISolone ACETATE 80 MG/ML VIAL ONE (07:22)
[2019-06-24] MEDS ORDERED: VANCOMYCIN HCL INJ 1,000 MG VIAL IVPB ONE (07:22)
[2019-06-24] MEDS ORDERED: BUPIVACAINE 0.25% INJ 30 ML VIAL INJ ONE ×2 (07:22→10:40)
[2019-06-24] MEDS ORDERED: DEXAMETHASONE INJ 10 MG/ML VIAL IV ONE (10:00)
[2019-06-24] MEDS ORDERED: diphenhydrAMINE HCL 50 MG/ML VIAL IV ONE (10:00)
[2019-06-24] MEDS ORDERED: PROPOFOL 200 MG/20 ML VIAL IV ONE (10:00)
[2019-06-24] MEDS ORDERED: LIDOCAINE 1% 10 ML VIAL INJ ONE (10:00)
[2019-06-24] MEDS ORDERED: METOCLOPRAMIDE HCL INJ 10 MG/2 ML VIAL IV ONE (10:00)
[2019-06-24] MEDS ORDERED: ePHEDrine SULF 50 MG/ML IV ONE (10:00)
[2019-06-24] MEDS ORDERED: KETOROLAC TROMETHAMINE INJ 30 MG/ML VIAL IV ONE (10:00)
[2019-06-24] MEDS ORDERED: ACETAMINOPHEN IV 1000MG 100 ML ONE (10:02)
[2019-06-24] MEDS ORDERED: fentaNYL CITRATE INJ 50 MCG/ML AMP ONE (10:02)
[2019-06-24] MEDS: LIDOCAINE 1% W/ EPINEPHRINE 20 ML VIAL INJ ONE ×2 (10:30→10:35)
[2019-06-26 02:56] VITALS: BP 117/46; TEMP 97.5; O2SAT 96
--- NOTE | 2019-06-26 08:31 | OP ---
DATE OF PROCEDURE: 06/24/19 PREOPERATIVE DIAGNOSIS: 1. Lipoma, right shoulder. 2. 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 POSTOPERATIVE DIAGNOSIS: 1. Lipoma, right shoulder. 2. 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 PROCEDURE: 1. Excision of lipoma. 2. Injection of left shoulder. SURGEON: Jason Montana MD [employer] SUPERVISOR: Yong Allen CST, SA-C ANESTHESIA: General anesthesia. COMPLICATIONS: None. FINDINGS: 1. Lipoma of right shoulder. 2. Osteoarthritis and rotator cuff tear of left shoulder. INDICATION: Ms. Garza has a long history of shoulder issues. She has had conservative measures, however, has failed to gain relief and is a candidate for total shoulder arthroplasty. She had a lipoma on the anterior aspect of the shoulder for a long time and I felt it would be prudent to remove that, allow the wound to heal and then move forward with a shoulder arthroplasty. After discussing the risks, benefits and alternatives to that, she has given informed consent for that. PROCEDURE: The patient was brought to the Operating Room and placed in supine position. General anesthesia was induced. The patient's arm and shoulder were sterilely prepped and draped. Following prepping and draping, an incision was made in the deltopectoral area directly overlying the lipoma. Following that, blunt dissection was used and the mass was cored out. Following that, the wound was very thoroughly irrigated. After that, the wound was closed with a combination of running and interrupted subcuticular stitches. Sterile dressings were placed. The left shoulder was then sterilely prepped and an injection of Marcaine, lidocaine and Depo-Medrol was performed. The patient was then awoken from anesthesia and taken to Recovery. POSTOPERATIVE PLAN: She will followup with us in two days. We will plan shoulder arthroplasty when she heals up from this. [facility][id number] [facility]
== END 2019-06-24 13:10 | disposition home or self-care (01) ==
LOC: AMB 05:25
PROVIDERS: ATTEND Orthopaedic Surgery
DX: D17.21 Benign lipomatous neoplasm of skin and subcutaneous tissue of right arm (principal); M75.102 Unspecified rotator cuff tear or rupture of left shoulder, not specified as traumatic; M19.012 Primary osteoarthritis, left shoulder; I10 Essential (primary) hypertension; E78.2 Mixed hyperlipidemia; J44.9 Chronic obstructive pulmonary disease, unspecified; Z87.19 Personal history of other diseases of the digestive system; Z87.891 Personal history of nicotine dependence; Z79.82 Long term (current) use of aspirin; Z79.899 Other long term (current) drug therapy
CPT/HCPCS: 01620; 11400; 20610; 80307; 88304; J0690; J1030; J1100; J1200; J1885; J2765; J3010; J3370; J3490; J7050; J7120

== ENCOUNTER → 2019-07-01 | Outpatient (CLI) | payer MEDICARE, OTHER ==
--- NOTE | 2019-07-01 13:23 | CT ---
Study: CT of the Right Shoulder. Indication: OSTEOARTHRITIS OF JOINT RIGHT SHOULDER REGION Technique: Axial CT of the right shoulder was performed without contrast. Coronal and sagittal reformats performed. This exam was performed according to our departmental dose-optimization program, which includes automated exposure control, adjustment of the mA and/or kV according to patient size and/or use of iterative reconstruction technique. Comparison: MRI February 25, 2019. Findings: Severe hypertrophic AC joint osteoarthritis. Type II acromion. Reason noted subcutaneous lipoma the anterior shoulder appears to have been surgically resected. Small to moderate volume subacromial/subdeltoid bursal fluid. Superior migration humeral head. Effectively full-thickness and fullwidth supraspinatus, infraspinatus, and subscapularis tendon tearing suspected. Mild atrophy and grade 2 fatty infiltration rotator cuff musculature. Long head biceps tendon torn and distally retracted. These changes are better evaluated on the prior MRI. Anterior subluxation humeral head in relation to the glenoid by up to 17 mm. Narrowing of the anterior glenohumeral joint space to less than 2 mm. Small inferior humeral head osteophytes. Moderate subchondral sclerosis. Large joint effusion. No acute fracture. Impression: Right glenohumeral joint osteoarthritis with anterior subluxation of the humeral head and associated large joint effusion. Extensive rotator cuff tendon tearing as well as mild atrophy and grade 2 fatty infiltration rotator cuff musculature. Long head biceps tendon torn and distally retracted. Severe hypertrophic AC joint osteoarthritis. Electronically signed by: Oscar Whittington MD 07/01/2019 1:22 PM [employer]
== END ==
LOC: CT 09:00
PROVIDERS: ATTEND Orthopaedic Surgery
DX: M19.011 Primary osteoarthritis, right shoulder (principal); M75.101 Unspecified rotator cuff tear or rupture of right shoulder, not specified as traumatic; S46.121A Laceration of muscle, fascia and tendon of long head of biceps, right arm, initial encounter; M62.511 Muscle wasting and atrophy, not elsewhere classified, right shoulder

== ENCOUNTER → 2019-07-09 | Outpatient (CLI) | payer MEDICARE, OTHER | LOC: LAB.O 09:24 | PROVIDERS: ATTEND Orthopaedic Surgery | DX: Z01.818 Encounter for other preprocedural examination (principal) ==

== ENCOUNTER → 2020-05-06 | Outpatient (CLI) | payer MEDICARE, OTHER | LOC: GMAE 14:52 | PROVIDERS: ATTEND Family Medicine | DX: I10 Essential (primary) hypertension (principal); E78.2 Mixed hyperlipidemia ==